=== PATIENT | female | born 1980 | race Two or more races ===

== ENCOUNTER 2019-06-18 14:53 | Outpatient (CLI) | payer OTHER | END 2019-06-18 15:36 | disposition home or self-care (01) | LOC: SONOGRAMA 14:53 | DX: O02.1 Missed abortion (principal) ==

== ENCOUNTER 2019-06-21 07:10 | Day surgery (SDC) | payer OTHER | END 2019-06-21 15:20 | disposition home or self-care (01) | LOC: CIR.AMB 07:10 | DX: O02.1 Missed abortion (principal); Z3A.01 Less than 8 weeks gestation of pregnancy ==